=== PATIENT | female | born 1985 | race Hispanic/Latino ===

== ENCOUNTER 2019-09-24 16:19 | Emergency (ER) | payer OTHER ==
[2019-09-24] MEDS ORDERED: ONDANSETRON ODT 4 MG TAB ONE (16:40)
[2019-09-24] MEDS ORDERED: ACETAMINOPHEN EXTRA STRENGTH 500 MG TABLET ONE (16:43)
== END 2019-09-24 16:57 | disposition home or self-care (01) ==
LOC: EDH 16:19
DX: R11.2 Nausea with vomiting, unspecified (principal); R51 Headache
CPT/HCPCS: 96372